=== PATIENT | female | born 1965 | race Hispanic/Latino ===

== ENCOUNTER 2020-10-26 20:12 | Emergency (ER) | payer OTHER ==
[~2020-10-26] VITALS: Ht 152.4 cm; Wt 65.3 kg
[2020-10-26] MEDS ORDERED: SODIUM CHLORIDE 0.9% 1000ML 1,000 ML IV STA (21:01)
[2020-10-26] MEDS ORDERED: FAMOTIDINE 20 MG/2 ML VIAL IV ONE ×2 (21:15→21:32)
[2020-10-26] MEDS ORDERED: KETOROLAC TROMETHAMINE 30 MG/ML VIAL IV ONE (21:15)
[2020-10-26] MEDS ORDERED: ONDANSETRON HCL INJ 2MG/ML 2ML 2 MG/ML VIAL IV ONE (21:15)
[2020-10-26] MEDS ORDERED: ONDANSETRON HCL INJ 2MG/ML 2ML 2 MG/ML VIAL ONE (21:32)
[2020-10-26] MEDS ORDERED: SODIUM CHLORIDE 0.9% 1000ML 1,000 ML ONE (21:32)
[2020-10-26] MEDS ORDERED: KETOROLAC TROMETHAMINE 30 MG/ML VIAL ONE (21:32)
[2020-10-26] MEDS ORDERED: SODIUM CHLORIDE 0.9% 50ML 50 ML ONE (21:36)
[2020-10-26] MEDS ORDERED: IOPAMIDOL 370 MG/ML 200 ML INFUS..BTL INJ ONE (21:36)
[2020-10-26] MEDS ORDERED: FAMOTIDINE20 MG PO (22:51)
[2020-10-26] MEDS ORDERED: ULTRAM 50MG50 MG PO (22:51)
[2020-10-26] MEDS ORDERED: ACETAMINOPHEN500 MG PO (22:51)
[2020-10-26 23:18] VITALS: BP 122/76
== END 2020-10-26 23:18 | disposition home or self-care (01) ==
LOC: FSED 20:50
DX: K29.70 Gastritis, unspecified, without bleeding (principal); E03.9 Hypothyroidism, unspecified; R10.32 Left lower quadrant pain
CPT/HCPCS: 74177; 80053; 81003; 85025; 99284; J1885; J2405; J7030; Q9967